=== PATIENT | male | born 1980 | race Caucasian/White ===

== ENCOUNTER 2021-02-28 13:15 | Outpatient (CLI) | payer BC, SELFPAY ==
--- NOTE | ~2021-02-28 | US_ITS ---
EXAMINATION: US venous doppler [facility] DATE: 02/28/2021 13:47 INDICATION: Bilateral lower limb pain TECHNIQUE: Stephens scale images without and with compression and Doppler images of the bilateral lower e xtremity veins were obtained. COMPARISON: None FINDINGS: The right common femoral vein, profunda femoral vein, femoral vein, popliteal vein, peroneal trunk, p osterior tibial veins, and greater saphenous vein are patent. The left common femoral vein, profunda femoral vein, femoral vein, popliteal vein, peroneal trunk, po sterior tibial veins, and greater saphenous vein are patent. IMPRESSION: 1. Patent bilateral lower extremity veins. No evidence of deep venous thrombosis. Reviewed, dictated and finalized at location A. IMPRESSION: 1. Patent bilateral lower extremity veins. No evidence of deep venous thrombosi s.
== END 2021-02-28 13:16 | disposition home or self-care (01) ==
LOC: ANHIMG 13:21
PROVIDERS: PCP Emergency Medicine; Visit Provider Emergency Medicine
DX: M79.604 Pain in right leg (principal); M79.605 Pain in left leg
CPT/HCPCS: 93970

== ENCOUNTER 2021-04-04 12:55 | Outpatient (CLI) | payer BC, SELFPAY ==
--- NOTE | ~2021-04-04 | US_ITS ---
US scrotum doppler INDICATION: Testicular pain TECHNIQUE: Testicular sonogram utilizing grayscale and color Doppler FINDINGS: The testes are normal in size and appearance. No focal lesions are seen. The right testes measures 4.5 x 2.4 x 2.6 cm centimeters, and the left testis measures 4.8 x 2.9 x 2.7 cm cm. There is normal vascular flow to both testes. The right and left epididymides appear normal. There are bilateral varicoceles. No significant hydrocele. IMPRESSION: 1. Bilateral varicoceles. Reviewed, dictated and finalized at location B. IMPRESSION: 1. Bilateral varicoceles.
== END 2021-04-04 12:56 | disposition home or self-care (01) ==
LOC: ANHIMG 12:57
PROVIDERS: PCP Emergency Medicine; Visit Provider Emergency Medicine
DX: I86.1 Scrotal varices (principal)
CPT/HCPCS: 76870; 93976